=== PATIENT | female | born 1970 | race Caucasian/White ===

== ENCOUNTER 2016-12-21 14:11 | Emergency (ER) | payer OTHER ==
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
[2016-12-21 14:18] VITALS: BP 105/54; PULSE 98; TEMP 98; BMI 24.9
[2016-12-21] MEDS ORDERED: KETOROLAC TROMETHAMINE 60 MG/2 ML VIAL IM ONE (15:58)
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
--- NOTE | 2016-12-22 11:50 | EKG ---
Test Reason : Blood Pressure : / mmHG Vent. Rate : 072 BPM Atrial Rate : 072 BPM P-R Int : 164 ms QRS Dur : 082 ms QT Int : 390 ms P-R-T Axes : 037 017 028 degrees QTc Int : 427 ms NORMAL SINUS RHYTHM NORMAL ECG NO PREVIOUS ECGS AVAILABLE Confirmed by RAFAEL ROSARIO MD ([id number]) on 12/22/2016 11:50:02 AM Referred By: MR Confirmed By:RAFAEL ROSARIO MD
== END 2016-12-21 16:52 | disposition home or self-care (01) ==
LOC: JERFT 14:11
PROC: 3E0233Z Introduction of Anti-inflammatory into Muscle, Percutaneous Approach (ICD-10-PCS; principal; 2016-12-21)
DX: M62.838 Other muscle spasm (principal); T14.8 Other injury of unspecified body region; V43.52XA Car driver injured in collision with other type car in traffic accident, initial encounter; Y93.89 Activity, other specified; Y92.410 Unspecified street and highway as the place of occurrence of the external cause; Z98.84 Bariatric surgery status; D64.9 Anemia, unspecified
CPT/HCPCS: 71020-TC; 84703; 93005; 93010; 99281-25

== ENCOUNTER 2024-07-25 08:21 | Day surgery (SDC) | payer OTHER ==
[2024-07-17 14:11] VITALS: BMI 28.3
[2024-07-25] MEDS ORDERED: LACTATED RINGERS SOLUTION 1,000 ML IV SCH (09:30)
[2024-07-25] MEDS ORDERED: oxyCODONE HCL 5 MG TABLET PO PRN ×2 (09:30)
[2024-07-25] MEDS ORDERED: MIDAZOLAM HCL 2 MG/2 ML SINGLE DOSE VIAL ONE (09:50)
[2024-07-25] MEDS ORDERED: DEXAMETHASONE SOD PHOSPHATE 10 MG/1 ML VIAL ONE (09:50)
[2024-07-25] MEDS ORDERED: FENTANYL CITRATE/PF 50 MCG/ML VIAL ONE (09:51)
[2024-07-25] MEDS ORDERED: ROPIVACAINE HCL/PF 100 MG/20 ML VIAL ONE (09:51)
[2024-07-25] MEDS ORDERED: PROPOFOL 40 ML ONE (11:37)
[2024-07-25] MEDS ORDERED: ePHEDrine SULFATE 50 MG/1 ML AMPULE ONE (12:00)
[2024-07-25] MEDS ORDERED: PROPOFOL 20 ML ONE ×3 (13:00→14:04)
[2024-07-25] MEDS ORDERED: ACETAMINOPHEN INJECTION 100 ML ONE (14:33)
[2024-07-25] MEDS: ACETAMINOPHEN 1000 MG/100 ML BAG IVPB ONE (14:35)
[2024-07-25 16:05] VITALS: RESP 18; TEMP 97.2
[2024-07-25 16:38] VITALS: BP 124/71; PULSE 71
== END 2024-07-25 16:41 | disposition home or self-care (01) ==
LOC: FASU 08:21
PROVIDERS: ATTEND Orthopaedic Surgery Sports Medicine
PROC: 0PB94ZZ Excision of Right Clavicle, Percutaneous Endoscopic Approach (ICD-10-PCS; principal; 2024-07-25 12:20)
PROC: 0RBJ4ZZ Excision of Right Shoulder Joint, Percutaneous Endoscopic Approach (ICD-10-PCS; 2024-07-25 12:20)
PROC: 0LS34ZZ Reposition Right Upper Arm Tendon, Percutaneous Endoscopic Approach (ICD-10-PCS; 2024-07-25 12:20)
DX: M75.121 Complete rotator cuff tear or rupture of right shoulder, not specified as traumatic (principal); M75.21 Bicipital tendinitis, right shoulder; M19.011 Primary osteoarthritis, right shoulder; M75.51 Bursitis of right shoulder; S43.431A Superior glenoid labrum lesion of right shoulder, initial encounter; X58.XXXA Exposure to other specified factors, initial encounter; Y93.9 Activity, unspecified; Y92.9 Unspecified place or not applicable
CPT/HCPCS: 81025; 94760; C1713; J0131; J1100